=== PATIENT | male | born 1955 | race Caucasian/White ===

== ENCOUNTER 2017-03-05 09:18 | Inpatient (IN) | payer OTHER ==
[2017-03-02 15:53] VITALS: BMI 33.2
[2017-03-05] MEDS ORDERED: PROPOFOL 20 ML ONE ×6 (09:55→13:12)
[2017-03-05] MEDS ORDERED: ePHEDrine SULFATE 50 MG/1 ML AMPULE ONE (09:55)
[2017-03-05] MEDS ORDERED: ROCURONIUM BROMIDE 50 MG/5 ML VIAL ONE (09:56)
[2017-03-05] MEDS ORDERED: SUCCINYLCHOLINE CHLORIDE 200 MG/10 ML VIAL ONE (09:56)
[2017-03-05] MEDS ORDERED: PHENYLEPHRINE HCL 10 MG/1 ML SINGLE DOSE VIAL ONE (09:56)
[2017-03-05] MEDS ORDERED: GABAPENTIN 300 MG CAPSULE (FP) PO ONE (10:00)
[2017-03-05] MEDS ORDERED: CEFAZOLIN 2 GM in DEXTROSE 5%-WATER - 100 ML IVPB ONE (10:00)
[2017-03-05] MEDS ORDERED: oxyCODONE HCL 10 MG SUSTAINED ACTING TABLET PO STA (10:00)
--- NOTE | 2017-03-05 10:50 | HP ---
History & Physical Update - History History: No Change - Physical Physical: No Change - Assessment Assessment: No Change - Plan Plan: No Change
[2017-03-05] MEDS ORDERED: MIDAZOLAM HCL 2 MG/2 ML SINGLE DOSE VIAL ONE ×3 (11:12→11:49)
[2017-03-05] MEDS ORDERED: THROMBIN (BOVINE) 5,000 UNIT VIAL TP ONE (11:38)
[2017-03-05] MEDS ORDERED: EPINEPHrine 1:1,000 1 MG/1 ML - 30ML VIAL (INJECTION) ONE (11:39)
[2017-03-05] MEDS ORDERED: LIDOCAINE 1%/EPI 1:100000 (20 ML MULTI DOSE VIAL) ONE (11:40)
[2017-03-05] MEDS ORDERED: LIDOCAINE 1%/EPI 1:100000 (50 ML MULTI DOSE VIAL) INF ONE (12:15)
[2017-03-05] MEDS ORDERED: ONDANSETRON 4 MG/2 ML VIAL ONE ×2 (12:21→13:31)
[2017-03-05] MEDS ORDERED: ceFAZolin SODIUM 1 GM VIAL ONE (12:21)
[2017-03-05] MEDS ORDERED: DEXAMETHASONE SOD PHOSPHATE 4 MG/1 ML VIAL ONE (12:21)
--- NOTE | 2017-03-05 13:47 | OP ---
Operative Note - Note: Operative Date: 03/05/17 Pre-Operative Diagnosis: Cervical stenosis Operation: ACDF C5-C6 Post-Operative Diagnosis: Same as Pre-op Surgeon: Collin Limon Research Chef: Duong Leal Anesthesiologist/GENERAL MACHINIST: Rose Moore Anesthesia: General Specimens Removed: C5-C6 disc Estimated Blood Loss (mls): 10 Fluid Volume Replaced (mls): 1,000 Operative Report Dictated: Yes
--- NOTE | 2017-03-05 13:49 | SURG ---
Surgery Marine Service Manager Note Marine Service Manager: Duong Leal PA-C Date of Service: 03/05/17 Diagnosis: Cervical stenosis Procedure: Anterior cervical discectomy with fusion C5-C6 allograft implant and neuromonitoring I was present for the entirety of the operative procedure. For further detail, please refer to operative report. Visit type - Case Type Case Type: Scheduled Admission - New patient This patient is new to me today: Yes Date on this admission: 03/05/17
[2017-03-05] MEDS ORDERED: oxyCODONE HCL 5 MG TABLET PO PRN ×2 (13:52)
[2017-03-05] MEDS ORDERED: morphine CARPU-JECT 4 MG/1 ML DISP.SYRIN IVPUSH PRN (13:52)
[2017-03-05] MEDS ORDERED: ONDANSETRON 4 MG/2 ML VIAL IVPB PRN (13:52)
[2017-03-05] MEDS ORDERED: GABAPENTIN 100 MG CAPSULE (FP) PO PRN (13:52)
[2017-03-05] MEDS ORDERED: KETOROLAC TROMETHAMINE 30 MG/1 ML VIAL IVPUSH PRN (13:52)
[2017-03-05] MEDS ORDERED: ACETAMINOPHEN 1000 MG/100 ML VIAL (NON FORMULARY) IVPB PRN (13:55)
[2017-03-05] MEDS ORDERED: CYCLOBENZAPRINE HCL 10 MG TABLET (FP) PO PRN (13:55)
[2017-03-05] MEDS ORDERED: LACTATED RINGERS SOLUTION 1,000 ML IV SCH ×2 (14:00→14:30)
[2017-03-05] MEDS: diazePAM CARPU-JECT 10 MG/2 ML DISP.SYRIN IVPUSH ONE ×2 (14:00→15:35)
[2017-03-05] MEDS ORDERED: ONDANSETRON 4 MG/2 ML VIAL IVPUSH PRN (14:26)
[2017-03-05] MEDS ORDERED: KETOROLAC TROMETHAMINE 30 MG/1 ML VIAL ONE (14:56)
[2017-03-05] MEDS: sitaGLIPtin PHOSPHATE 50 MG TABLET PO SCH (17:01)
[2017-03-05] MEDS: metFORMIN HCL 500 MG TABLET (FP) PO SCH (17:01)
[2017-03-05] MEDS: ceFAZolin 2 GRAM PREMIX BAG IVPB SCH (18:40)
[2017-03-05] MEDS ORDERED: PATIENT'S OWN MEDICATION (NON-FORMULARY) (Sitagliptin Phos/Metformin Hcl [Janumet 50-1,000 PO SCH (22:00)
[2017-03-05] MEDS ORDERED: ASPIRIN COATED 81 MG TABLET.EC PO SCH (22:00)
[2017-03-05] MEDS ORDERED: ATORVASTATIN CA 20 MG TABLET (FP) PO SCH (22:00)
[2017-03-05] MEDS ORDERED: PATIENT'S OWN MEDICATION (NON-FORMULARY) (Simvastatin 40 MG) PO SCH (22:00)
[2017-03-05] MEDS ORDERED: amLODIPine BESYLATE 10 MG TABLET (FP) PO SCH (22:00)
[2017-03-06] MEDS: ceFAZolin 2 GRAM PREMIX BAG IVPB SCH (03:11)
[2017-03-06 05:59] VITALS: BP 134/81; PULSE 77; TEMP 97.7
[2017-03-06] MEDS ORDERED: ACETAMINOPHEN 325 MG TABLET (FP) ONE (06:04)
[2017-03-06] MEDS: metFORMIN HCL 500 MG TABLET (FP) PO SCH (06:11)
[2017-03-06] MEDS: sitaGLIPtin PHOSPHATE 50 MG TABLET PO SCH (06:11)
--- NOTE | 2017-03-06 08:10 | DS ---
Physical Exam: SUBJECTIVE: Patient seen and examined he states that he had some pain overnight and flet better after taking oxycodone. No CP, SOB, ambulated in the halls last pm, voiding on his own. No difficulty swallowing. Has some tingling to right hand but states that he also has carpal tunnel in his hand. OBJECTIVE: Vital Signs Temperature 97.7 F 03/06/17 05:58 Pulse Rate 77 03/06/17 05:58 Respiratory Rate 17 03/06/17 05:58 Blood Pressure 134/81 03/06/17 05:58 O2 Sat by Pulse Oximetry (%) 94 L 03/05/17 22:15 PHYSICAL EXAM GENERAL: The patient is awake, alert, and fully oriented, in no acute distress. HEAD: Normal with no signs of trauma. NECK: Trachea midline, supple, dressing c/d/i without any masses and neck remains soft. Soft collar in place. LUNGS: Breath sounds equal, clear to auscultation bilaterally, no wheezes, no crackles,. HEART: Regular rate and rhythm,. ABDOMEN: Soft, nontender, nondistended. EXTREMITIES: warm, well-perfused, no edema. No calf tenderness or swelling noted b/l. NEUROLOGICAL: Normal speech, gait steady. 5/5 dorsi/plantar flexion. Director Of Physician Practices strength equal b/l. Extension/flexion 5/5 to upper ext b/l PSYCH: Normal mood, normal affect. LABS CBC,CMP POC Glucometer 159 UNITS (()) 03/06/17 06:08 HOSPITAL COURSE: Date of Admission:03/05/17 Date of Discharge: 03/06/17 The patient was admitted to the Med-Surg Unit after an elective repair of their C5-C6 cervical stensosis. Now, s/p ACDF C5-C6 The day of surgery, the patient ambulated the hallways with assistance. Narcotic and non-narcotic pain management control was achieved with an oral and IV approach.An xray was obtained and confirmed hardware placement at C5-C6, no fractures or dislocations. Sanjuanita-operative IV ABX were administered. DVT prophylaxis was achieved with SCDs and early ambulation.The patient ambulated with Physical Therapy and no services were recommended upon discharge. Narcotic scripts and or muscle relaxants were checked with [facility] CARTOGRAPHY/MAPPING TECHNICIAN prior to escibe. The discharge instructions and an oral pain management plan were reviewed with the patient. All questions answered. Above plan discussed with Dr. Limon and agreed . Minutes to complete discharge: 30 <Madalyn Ortiz - Last Filed: 03/08/17 08:01> Physical Exam: SUBJECTIVE: Patient seen and examined OBJECTIVE: Vital Signs Temperature 97.7 F 03/06/17 05:58 Pulse Rate 77 03/06/17 05:58 Respiratory Rate 17 03/06/17 05:58 Blood Pressure 134/81 03/06/17 05:58 O2 Sat by Pulse Oximetry (%) 94 L 03/05/17 22:15 PHYSICAL EXAM GENERAL: The patient is awake, alert, and fully oriented, in no acute distress. HEAD: Normal with no signs of trauma. EYES: PERRL, extraocular movements intact, sclera anicteric, conjunctiva clear. ENT: Ears normal, nares patent, oropharynx clear without exudates, moist mucous membranes. NECK: Trachea midline, full range of motion, supple. LUNGS: Breath sounds equal, clear to auscultation bilaterally, no wheezes, no crackles, no accessory muscle use. HEART: Regular rate and rhythm, S1, S2 without murmur, rub or gallop. ABDOMEN: Soft, nontender, nondistended, normoactive bowel sounds, no guarding, no rebound, no hepatosplenomegaly, no masses. EXTREMITIES: 2+ pulses, warm, well-perfused, no edema. NEUROLOGICAL: Cranial nerves II through XII grossly intact. Normal speech, gait not observed. PSYCH: Normal mood, normal affect. SKIN: Warm, dry, normal turgor, no rashes or lesions noted. LABS CBC,CMP POC Glucometer 159 UNITS (()) 03/06/17 06:08 HOSPITAL COURSE: Date of Admission:03/05/17 Date of Discharge: 03/08/17 The patient was admitted to the Med-Surg Unit after an elective repair of their (problem). Now, s/p ( procedure ). The day of surgery, the patient ambulated the hallways with assistance. Narcotic and non-narcotic pain management control was achieved with an oral and IV approach. POD #1, the surgical drain was removed fully intact and without incident. An xray was obtained and confirmed hardware placement at (level of ), no fractures or dislocations. Sanjuanita-operative IV ABX were administered. DVT prophylaxis was achieved with SCDs and early ambulation. The patient ambulated with Physical Therapy and no services were recommended upon discharge. Narcotic scripts and or muscle relaxants were checked with [place] CARTOGRAPHY/MAPPING TECHNICIAN prior to escibe. The discharge instructions and an oral pain management plan were reviewed with the patient. All questions answered. Above plan discussed with Dr. Limon and agreed. Patient seen and examined Agree with above D/C Planning <Collin Limon - Last Filed: 03/08/17 10:54> Visit type - Case Type Case Type: Scheduled Admission - Emergency Emergency Visit: No - New patient This patient is new to me today: Yes Date on this admission: 03/06/17 - Critical Care Critical Care patient: No <Madalyn Ortiz - Last Filed: 03/08/17 08:01>
[2017-03-06] MEDS ORDERED: METOPROLOL SUCCINATE 200 MG TAB.SR.24H PO SCH ×2 (10:00)
[2017-03-06] MEDS ORDERED: CAPTOPRIL 25 MG PO SCH (10:00)
[2017-03-06] MEDS ORDERED: PANTOPRAZOLE 40 MG TABLET (FP) PO SCH (10:00)
[2017-03-06] MEDS ORDERED: CHOLECALCIFEROL (VITAMIN D3) 1,000 UNIT TABLET (FP) PO SCH (10:00)
[2017-03-06] MEDS ORDERED: METOPROLOL SUCCINATE 100 MG TAB.SR.24H (FP) PO SCH (10:00)
[2017-03-06] MEDS ORDERED: traMADol HCL 50 MG TABLET PO PRN (10:32)
--- NOTE | 2017-03-06 14:01 | OP ---
DATE OF OPERATION: 03/05/2017 PREOPERATIVE DIAGNOSIS: Cervical stenosis, C5-6. POSTOPERATIVE DIAGNOSIS: Cervical stenosis, C5-6. PROCEDURE PERFORMED: 1. Anterior cervical diskectomy, C5-6. 2. Placement of prosthetic cage. 3. Anterior cervical fusion. SURGEON: Collin Limon MD NUCLEAR MEDICINE TECHNOLOGIST: TROY Collazo ESTIMATED BLOOD LOSS: 50 mL INTRAVENOUS FLUIDS: Per Anesthesia. ANESTHESIA: General. COMPLICATIONS: None. DISPOSITION: Patient brought to the PACU in stable condition. INDICATION FOR SURGERY: The patient is a 61-year-old gentleman who has been suffering from pain from his neck and his arms. X-rays and MRI were completed which noted that he had cervical stenosis at C5-6. He has gone through an exhaustive course of treatment for this, which included medications, physical therapy, as well as injections. Unfortunately, his pain continued to persist despite all this. Risks, benefits, and alternatives were discussed, and the patient consented to surgery. DESCRIPTION OF PROCEDURE: Patient was brought to the operating room by anesthesia staff. After appropriate patient identification was performed, general anesthesia was given. Patient was placed supine on the OR bed. Arms tucked in at the side. All areas of bony prominences were well padded at this time. A shoulder roll was placed to extend his shoulders to the point that he could tolerate in the preoperative holding area. A needle was taped onto his neck to ama off the C5- 6 level. An x-ray was taken to confirm this as correct. Needle was removed, and 10 mL of lidocaine with epinephrine were injected into his neck at this time. His neck was prepped and draped in a sterile manner. At this point, timeout was completed. An incision was made in the left side of his neck. Dissection was carried down to the platysma. The platysma was cut in line with the skin incision. Next, the interval between the sternocleidomastoid as well as strap muscles was developed. The interval between the carotid sheath as well as tracheoesophagus was developed. Peanuts were used to elevate it off of the prevertebral fascia. Spinal needle was placed into the C5-6 disk. An x-ray was taken to confirm this as correct. At this point, the needle was removed. Longus colli muscles were elevated off. Retractor blade was placed in. A knife was used to incise the disk, and disk was distracted. At this point, the microscope was brought in. Using a series of pituitaries, Kerrisons, and curettes, a diskectomy was completed. Endplates were decorticated at this time. A size 8 cage filled with bone graft was placed in. Screws were placed in the body of C5 and placed in the body of C6. AP and lateral x-rays confirmed the instrumentation to be in good position. The [place] pins were removed. Final tightening was performed. The platysma was closed with 2-0 Vicryl suture. Skin was closed with 3-0 Monocryl suture. Dermabond was applied. Steri-Strips were applied. A sterile dressing was applied. Patient was placed supine on the OR bed, extubated in the ER, and brought to the PACU in stable condition. Mckenna COKER/[id number] MTDD
--- NOTE | 2017-03-07 14:01 | PATH ---
Surgical Pathology Report Patient Name: JOSE MIGUEL EVANS [facility]. Rec. #: [id number] /Age/Gender: 1955 (Age: 61) / F Account: [id number] Location: [facility] Taken: 03/06/2017 Received: 03/06/2017 Reported: 03/07/2017 Physicians: Collin Limon M.D. Specimen(s) Received DISC C5-6 Clinical History Cervical stenosis Final Diagnosis INTERVERTEBRAL DISC, C5-6, PARTIAL EXCISION: PORTIONS OF INTERVERTEBRAL DISC. Electronically Signed Gurmeet Whyte M.D. Gross Description Received in formalin labelled "disc C5-6" is a 2.0 x 1.5 x 0.4 cm aggregate of cartilaginous tissue fragments. Totally submitted in one cassette. [facility]/03/06/2017 [facility]/03/06/2017
== END 2017-03-06 12:00 | disposition home or self-care (01) | DRG 321 ==
LOC: FASU 09:18 → EDSEX 10:45 → FM/S 13:53
PROVIDERS: ADMIT Orthopaedic Surgery Orthopaedic Surgery of the Spine; ATTEND Orthopaedic Surgery Orthopaedic Surgery of the Spine
PROC: 0RB30ZZ Excision of Cervical Vertebral Disc, Open Approach (ICD-10-PCS; 2017-03-05)
PROC: 0RG10A0 Fusion of Cervical Vertebral Joint with Interbody Fusion Device, Anterior Approach, Anterior Column, Open Approach (ICD-10-PCS; principal; 2017-03-05 12:32)
DX: M48.02 Spinal stenosis, cervical region (principal); I10 Essential (primary) hypertension; E78.5 Hyperlipidemia, unspecified; K21.9 Gastro-esophageal reflux disease without esophagitis; M19.012 Primary osteoarthritis, left shoulder; M19.011 Primary osteoarthritis, right shoulder; M17.0 Bilateral primary osteoarthritis of knee
CPT/HCPCS: 72050-TC; 76001-TC; 88304-TC; 94760; 97116-GP; 97162-GP